=== PATIENT | male | born 2000 | race Two or more races ===

== ENCOUNTER 2024-07-06 00:47 | Emergency (ER) | payer MEDICAID, SELFPAY ==
[2024-07-06 00:48] VITALS: BMI 29.0
[2024-07-06 00:57] VITALS: BP 133/78; PULSE 83; RESP 18; TEMP 37.2; O2SAT 99
--- NOTE | 2024-07-06 01:12 | XR_ITS ---
Examination: CT brain head without contrast. 2-D sagittal coronal reconstructions Date and time of exam:July 06, 2024 0139 hrs. Indications: Patient fell today with injury to the head, head pain CTDI: vol (mGy):56.8 DLP: (mGycm):1169 Technique: Multiple CT axial sections of the brain have been obtained, 5 mm slice thickness. Contrast has not been administered. 2-D sagittal, coronal reconstructions have been obtained Low dose protocols were performed. One or more of the following dose reduction techniques were used; automated exposure control, adjustment of the mA and/or KV according to patient size, use of iterative reconstruction technique. Findings: No significant ventricular enlargement. Intra-axial or extra-axial hemorrhage density is not seen. No mass effect or midline shift Basal cisterns are not remarkable. Fourth ventricle is midline. Cranial vault intact. Impression: Negative for acute hemorrhage, mass effect or midline shift
--- NOTE | 2024-07-06 01:12 | EKG_ITS ---
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
--- NOTE | 2024-07-06 02:23 | PRELIM_ITS ---
CT scan of the head without intravenous contrast (axial sections with sagittal and coronal reformats) July 06, 2024 0139 hours Clinical History: Fall. Findings:No evidence of intracranial hemorrhage , mass effect or midline shift. The ventricles and CSF spaces are unremarkable. The calvarium is inta ct. Moderate opacification of right mastoid air cells. The left mastoid air cells and the visualized paranasal sinuses are clear.Impression:No evidence of intracranial hemorrhage, midline shift or vernon rial fracture.Other findings as described above. Report Electronically Signed By: Paul Parham 06/09 2:23:11 AM [EST]
[2024-07-06 03:11] VITALS: BP 128/76; PULSE 80; RESP 18; TEMP 36.7; O2SAT 99
== END 2024-07-06 03:12 | disposition home or self-care (01) ==
PROVIDERS: Emergency Provider Emergency Medicine
DX: S09.90XA Unspecified injury of head, initial encounter (principal); F43.9 Reaction to severe stress, unspecified; W19.XXXA Unspecified fall, initial encounter
CPT/HCPCS: 70450; 93005; 99284